=== PATIENT | male | born 1975 ===

== ENCOUNTER 2023-01-13 17:24 | Emergency (ER) | payer BC ==
[~2023-01-13] VITALS: Ht 177.8 cm; Wt 95.0 kg
[2023-01-13 17:28] VITALS: TEMP 98.1
[2023-01-13 18:34] LABS: COLLECTION METHOD CLEAN CATCH
[2023-01-13 18:39] LABS: BASO # 0.1 K/mm3 (0.0-0.2); BASO % 0.5 % (0.0-2.0); EOS % 0.2 % (0.0-4.0); GRAN # 12.7 K/mm3 (1.4-6.5); GRAN % 86.8 % (42.2-75.2); HEMATOCRIT 46.4 % (42.0-52.0); HEMOGLOBIN 17.1 g/dl (13.5-18.0); LYMPH # 1.2 K/mm3 (1.2-3.4); LYMPH % 8.1 % (20.0-51.0); MEAN CELL VOLUME 83 fl (80.0-100.0); MEAN CORPUSCULAR HEMOGLOBIN 31 pg (27-31); MEAN CORPUSCULAR HGB CONC 37 g/dl (33.0-37.0); MEAN PLATELET VOLUME 11.9 fl (7.4-10.4); MONO # 0.6 K/mm3 (0.1-0.6); PLATELET COUNT 157 K/mm3 (130-400); RED BLOOD COUNT 5.58 M/mm3 (4.20-5.60)
[2023-01-13 18:53] LABS: URINE APPEARANCE Cloudy (CLEAR/HAZY); URINE BLOOD 3+ (NEGATIVE); URINE COLOR Red (YELLOW); URINE GLUCOSE Negative (NEGATIVE); URINE KETONE TRACE (NEGATIVE); URINE NITRATE Negative (NEGATIVE); URINE PROTEIN(semi-quant) 1+ (NEGATIVE)
[2023-01-13 18:55] LABS: MUCOUS Present (NOT PRESENT); SQUAMOUS EPITHELIAL None Seen /hpf (0-10); URINE BACTERIA None Seen /hpf (NONE SEEN); URINE RBC >50 /hpf (0-2)
[2023-01-13 19:01] LABS: ALBUMIN 4.9 gm/dL (3.5-5.0); BILIRUBIN,TOTAL 1.4 mg/dL (0.2-1.2); CALCIUM 10.4 mg/dL (8.4-10.2); CREATININE, serum 1.02 mg/dL (0.72-1.25); POTASSIUM 3.4 mmol/L (3.5-4.5); TOTAL PROTEIN 8.4 gm/dL (6.2-8.1)
[2023-01-13] MEDS ORDERED: FLOMAX 0.40.4 MG/CAP PO (21:00)
[2023-01-13] MEDS ORDERED: ZOFRAN ODT4 MG PO (21:00)
[2023-01-13] MEDS ORDERED: PERCOCET 325 MG1 TA2 PO (21:00)
[2023-01-13 21:40] VITALS: BP 130/88; PULSE 76
== END 2023-01-13 21:43 | disposition home or self-care (01) ==
LOC: COL.ER 17:24
PROVIDERS: Physician Assistant
DX: N13.2 Hydronephrosis with renal and ureteral calculous obstruction (principal); Z87.442 Personal history of urinary calculi
CPT/HCPCS: J1885; J2405; J7030; Q9967